=== PATIENT | female | born 2005 | race Hispanic/Latino ===

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

== ENCOUNTER 2025-01-05 21:16 | Emergency (ER) | payer SELFPAY ==
[2025-01-05 21:33] VITALS: BP 124/80; PULSE 68; RESP 18; TEMP 36.6; O2SAT 100
[2025-01-06 00:21] LABS: BEDSIDEPREGUCG Negative (Negative)
[2025-01-06 00:25] LABS: Add Urine Microscopic? YES; Appearance Urine Clear (Clear); Glucose Urine UA Negative (Negative); Leukocyte Esterase Ur 1+ LEU/UL (Negative); Nitrate Urine Negative (Negative); Non Pathogenic Casts 0-2; Specific Grav Ur 1.033 (1.001-1.035)
--- NOTE | 2025-01-06 01:05 | ED.BACK ---
HPI - Back Pain/Injury General Chief Complaint: Back Pain/Injury Stated Complaint: Lower back pain-known UTI Time Seen by Provider: 01/06/25 00:46 Source: patient and family (mother) Mode of arrival: ambulatory Limitations: no limitations History of Present Illness HPI Narrative: Patient presents with right flank pain. She has a new UTI as her urine was tested at urgent care recently. Her symptoms of urinary urgency and frequency having getting better. She denies any hematuria. She has continued to have dysuria. Mother states that her symptoms have been going on for approximately 3 weeks and they think they waited too long to have it looked into. Patient denies being sexually active. Denies any vaginal bleeding or discharge. Her last bowel movement was yesterday and denies any diarrhea constipation or blood although mother does state that she has dealt with constipation before. Last menstrual period was last month. Patient was prescribed 500 mg tablets of ciprofloxacin to be taken for 7 days b.i.d. she is on day 3 of this therapy, has taken 5 doses. She took 500 mg 2 hours ago. Was also concern for possible yeast infection however she was prescribed the vaginal treatment and, as a virgin, felt uncomfortable using this. Instead has been applying [id number] cream. Patient has been having subjective fevers as well as nausea but no vomiting. No history of kidney stones. Does not currently have a primary care physician as they recently moved to [place] from [place]. They are currently in [place] for mother's nephew's who at 19 years old. Related Data Allergies Allergy/AdvReac Type Severity Reaction Status Date / Time Penicillins Allergy Mild Rash Verified 01/05/25 21:17 [facility] Surgical History Surgical History (Updated 06/02/24 @ 17:21 by Renu Hernandez APRN) History of tonsillectomy Social History Social History Living arrangements: with family Exam Narrative: GENERAL: Well-appearing, well-nourished, and in no acute distress. HEAD: Normocephalic, atraumatic. EYES: Non injected, non icteric ENT: Nares clear, no rhinorrhea or epistaxis. Gross auditory acuity intact. NECK: Supple. No meningismus. CHEST: Speaking in full sentences. No respiratory distress. HEART: Regular rate and rhythm. . ABDOMEN: Soft, nondistended. /BACK: Right CVA tenderness. EXTREMITIES: Normal range of motion. No lower extremity edema. SKIN: Warm, dry, no rash. NEURO: No focal deficits. Alert and oriented. Answering questions. Following commands. Normal speech without aphasia or dysarthria. PSYCH: Normal mood and affect. Course Vital Signs Vital signs: Vital Signs Temperature 98 F 01/05/25 21:33 Pulse Rate 68 01/05/25 21:33 Respiratory Rate 18 01/05/25 21:33 Blood Pressure 124/80 01/05/25 21:33 Pulse Oximetry 100 01/05/25 21:33 Oxygen Delivery Room Air 01/05/25 21:33 Temperature 98.3 F 01/06/25 01:46 Pulse Rate 68 01/06/25 01:46 Respiratory Rate 18 01/06/25 01:46 Blood Pressure 109/72 01/06/25 01:46 Pulse Oximetry 99 01/06/25 01:46 Oxygen Delivery Room Air 01/05/25 21:33 MDM - Back Pain/Injury MDM Narrative Medical decision making narrative: Patient presents with report of right flank pain. She has a known UTI diagnosed recently at urgent care. In the emergency department they are afebrile with vital signs within normal limits. test negative. UTI on urinalysis. Urine culture has reflexed. Patient was prescribed 7 day course of ciprofloxacin b.i.d. by urgent care which should be an appropriate therapy for pyelonephritis. I am hesitant to change antibiotics right now. Will give PO Zofran as well as IM ketorolac. Discharged with prescriptions for Zofran as well as pyridium and she received the 1st dose of this in the emergency department as well. She receives an empiric dose of fluconazole with a 1 time dose to be used in 72 hours if still symptomatic. We discussed the role of the urine culture and that they would be notified if there was indication of antibiotic resistance. We discussed appropriate hygiene and the need to drink plenty of fluids and that constipation can also contribute to UTI. She does not wear contacts but we discussed the side effects of Pyridium. However, Given patient is approaching nearly 3 days of antibiotic therapy (5 doses), there was consideration of abscess and for this reason I did urge her to return if she is continuing to have symptoms as she may require labs and imaging. They will go home and get some rest before going to family and assess if patient is improving. Provided referral to a PCP though they live in [facility]. Lab Data Attestation: I reviewed the patient's lab results. Labs: Lab Results 01/06/25 01/06/25 Range/Units 00:15 00:17 Urine Color Yellow (Yellow) Urine Appearance Clear (Clear) Urine pH 6.5 (5.0-9.0) Ur Specific [place] 1.033 (1.001-1.035) Urine Protein Trace (Negative) mg/dL Urine Glucose (UA) Negative (Negative) mg/dL Urine Ketones Trace H (Negative) mg/dL Ur Blood (Man) Negative (Negative) Urine Nitrate Negative (Negative) Urine Bilirubin Negative (Negative) Urine Urobilinogen 1.0 (<2.0) mg/dL Leukocyte Esterase Rfl 1+ H (Negative) ECHO/UL Urine RBC 0-2 (0-2) /hpf Urine WBC 6-10 H (0-3) /hpf Ur Squamous Epith Cells Few (Few) /hpf Urine Bacteria 2+ H /hpf Urine Casts 0-2 POC Urine HCG, Qual Negative (Negative) Discharge Plan Discharge Clinical Impression: Pyelonephritis, Dysuria, UTI (urinary tract infection) Patient Disposition: Home Condition: Stable Instructions: Antibiotic Form, Urinary Tract Infection in Women (DC), Kidney Infection (ED), Dysuria (ED), Flank Pain (ED) Additional Instructions: As we discussed, they urinary tract infection likely spread upwards to around your kidney which is known as pyelonephritis. Continue taking the antibiotic you were prescribed from urgent care. This should be appropriate and is of appropriate duration. However, your urine is currently being cultured you will be notified if based on this the ciprofloxacin does not seem like it will work. Take the entire course of antibiotics even if you do start feeling better. Acetaminophen/Tylenol (maximum 3000 mg per day) is safe to take with NSAIDs (ibuprofen/Motrin) for pain relief. Pyridium/phenazopyridine can help with the pain you are experiencing from a urinary tract infection. It can discolor your urine and tears (turn them orange). Do not wear contact lenses while taking this medication. We are also empirically treating you for a yeast infection. A 2nd dose at 72 hours (01/09/25) can be taken if still experiencing symptoms. The name of a primary care physician is listed for follow-up. Return to the emergency department any new or worsening symptoms such as intractable pain, intractable nausea/vomiting, fever greater than 100.4? F, etc. The oral disintegrating tablets of Zofran can help with nausea and vomiting Patient Language: Surinamese Prescriptions: New ibuprofen 600 mg tablet 600 mg PO TID PRN (Reason: pain) Qty: 30 0RF phenazopyridine [Pyridium] 100 mg tablet 100 mg PO TID PRN (Reason: pain) Qty: 5 0RF Rx Instructions: received first dose in ED 7/1 AM fluconazole 150 mg tablet 150 mg PO ONCE Qty: 1 0RF Rx Instructions: as a single dose, to be taken if still symptomatic in 72 hours (01/09/25) ondansetron 4 mg tablet,disintegrating 4 mg PO Q8H PRN (Reason: nausea and vomiting) Qty: 7 0RF ibuprofen 600 mg tablet 600 mg PO TID PRN (Reason: pain) Qty: 30 0RF ondansetron 4 mg tablet,disintegrating 4 mg PO Q8H PRN (Reason: nausea and vomiting) Qty: 7 0RF fluconazole 150 mg tablet 150 mg PO ONCE Qty: 1 0RF Rx Instructions: as a single dose in 72 hours (01/09/2025) if still symptomatic phenazopyridine [Pyridium] 100 mg tablet 100 mg PO TID PRN (Reason: pain) Qty: 5 0RF Rx Instructions: Received 1st dose in emergency department 7 /1 a.m. No Action fluticasone propionate [Flonase Allergy Relief] 50 mcg/actuation spray,suspension 2 spray intranasal DAILY Qty: 16 0RF Rx Instructions: administer into each nostril Follow-up/Referrals: Rayshawn Harrington MD [Physician] - PHYSICIAN,[employer] PREPARATION TECHNICIAN [Primary Care Provider] - Stand Alone Forms: Work/School Release IP Time of Disposition: 01:44
[2025-01-06 01:46] VITALS: BP 109/72; PULSE 68; RESP 18; TEMP 36.8; O2SAT 99
[2025-01-06] MEDS: FLUCONAZOLE 150 MG TABLET PO (01:46)
[2025-01-06] MEDS: ONDANSETRON HCL ODT 4 MG TABLET PO (01:46)
[2025-01-06] MEDS: PHENAZOPYRIDINE HCL 100 MG TABLET PO (01:46)
[2025-01-06] MEDS: KETOROLAC 30 MG/ML VIAL (*BKC) 15 MG IM (01:47)
== END 2025-01-06 02:00 | disposition home or self-care (01) ==
PROVIDERS: Physician Assistant; Emergency Provider Student in an Organized Health Care Education/Training Program
DX: N12 Tubulo-interstitial nephritis, not specified as acute or chronic (principal)
CPT/HCPCS: 81001; 81025; 87086; 96372; 99283; A9270; J1885

== ENCOUNTER 2025-01-08 16:39 | Emergency (ER) | payer MEDICAID, SELFPAY ==
--- NOTE | ~2025-01-08 | CT_ITS ---
CT abdomen pelvis w con Ordering provider: Miladis Padilla History: 19 years Female with . RIGHT FLANK PAIN, RIGHT LOWER QUADRANT PAIN . Comparison: None. Technique: CT abdomen and pelvis with IV and without oral contrast. Automated exposure control and it erative reconstruction technique were employed. The dose-length product was 190.60 mGy-cm. 100 mL Omn ipaque 350 was given IV. Findings: VISUALIZED LOWER CHEST: Normal. UPPER ABDOMINAL ORGANS: Liver: Normal. Gallbladder: Normal. Spleen: Normal. Stomach/duodenum: Normal. Pancreas: Normal. Slightly thickened body and tail of the pancreas with no surrounding fat stranding. Evaluation for pancreatitis and clinical correlation advised. Adrenals: Normal. Kidneys: Normal. PELVIC ORGANS: The bladder is normal. Left ovarian cyst is seen measuring 2.4 cm. BOWEL AND MESENTERY: Colon: No evidence of diverticulitis. Fecal material is loaded in the colon. The appendix is not demo nstrated. Small Bowel: Normal. No obstruction. Peritoneum/mesentery: No free air or free fluid. No mesenteric lymphadenopathy. RETROPERITONEUM: Normal aorta. No retroperitoneal lymphadenopathy. MUSCULOSKELETAL: Superficial soft tissues: The superficial soft tissues are normal. Bones: Normal spine. IMPRESSION: 1. No evidence of appendicitis, diverticulitis or intestinal obstruction. 2. Slightly thickened body and tail of the pancreas with no fat stranding. Clinical correlation and evaluation for pancreatitis advised. 3. Constipation. 4. Left ovarian cyst measuring 2.4 cm. Reviewed, dictated and finalized at location A. IMPRESSION: 1. No evidence of appendicitis, diverticulitis or intestinal obstruction. 2. Slightly thickened body and tail of the pancreas with no fat stranding. Cli nical correlation and evaluation for pancreatitis advised. 3. Constipation. 4. Left ovarian cyst measuring 2.4 cm.
[2025-01-08 16:40] VITALS: BP 115/71; PULSE 78; RESP 18; TEMP 36.8; O2SAT 100
[2025-01-08 18:55] VITALS: BP 110/76; PULSE 70; RESP 14; TEMP 36.6; O2SAT 100
[2025-01-08 19:07] LABS: BEDSIDEPREGUCG Negative (Negative)
[2025-01-08 19:47] LABS: Add Urine Microscopic? YES; Appearance Urine Cloudy (Clear); Glucose Urine UA Negative (Negative); Leukocyte Esterase Ur 1+ LEU/UL (Negative); Need Manual Microscopic Reviewed; Nitrate Urine Negative (Negative); Non Pathogenic Casts 0-2; Specific Grav Ur 1.027 (1.001-1.035)
--- NOTE | 2025-01-08 19:49 | ED.FEMALEGU ---
HPI - Female Genitourinary General Chief complaint: Urogenital-Female <Miladis Padilla MD - Last Filed: 01/08/25 22:12> Stated complaint: kidney infection <Miladis Padilla MD - Last Filed: 01/08/25 22:12> Time Seen by Provider: 01/08/25 19:42 <Miladis Padilla MD - Last Filed: 01/08/25 22:12> Source: patient <Miladis Padilla MD - Last Filed: 01/08/25 22:12> Mode of arrival: ambulatory <Miladis Padilla MD - Last Filed: 01/08/25 22:12> Limitations: no limitations <Miladis Padilla MD - Last Filed: 01/08/25 22:12> History of Present Illness HPI Narrative: 19 YEARS OLD FEMALE CAME TO THE ED COMPLAINING OF RIGHT FLANK PAIN, INTERMITTENT STARTED 2 WEEKS AGO. DULL ACHING, RADIATING SOMETIME TO RIGHT LOWER QUADRANT ASSOCIATED WITH NAUSEA, URINE FREQUENCY AND URGENCY, STARTED ON CIPRO 500 B.I.D. 6 DAYS AGO URINE SYMPTOMS ARE IMPROVED BUT THE FLANK PAIN STILL THERE. CAME TO OUR EMERGENCY ROOM 2 DAYS AGO, WAS DISCHARGED WITH DIAGNOSIS OF PYELONEPHRITIS ON PYRIDIUM, FLUCONAZOLE, ZOFRAN AND IBUPROFEN. PATIENT DID NOT GET THE PRESCRIPTION YET. PATIENT DENIES ANY VAGINAL BLEEDING OR DISCHARGE. <Miladis Padilla MD - Last Filed: 01/08/25 22:12> Related Data Allergies/Adverse reactions: Allergies Allergy/AdvReac Type Severity Reaction Status Date / Time Penicillins Allergy Mild Rash Verified 01/05/25 21:17 <Miladis Padilla MD - Last Filed: 01/08/25 22:12> Review of Systems Review of Systems: All systems reviewed & are unremarkable except as noted in HPI and below <Miladis Padilla MD - Last Filed: 01/08/25 22:12> [facility] Surgical History Surgical History: Surgical History History of tonsillectomy <Miladis Padilla MD - Last Filed: 01/08/25 22:12> Social History Social History: Social History Living arrangements: with family <Miladis Padilla MD - Last Filed: 01/08/25 22:12> Exam Narrative: GENERAL APPEARANCE: WELL-DEVELOPED, WELL-NOURISHED SKIN: NORMAL COLOR HEAD: NORMOCEPHALIC, NONTRAUMATIC EYES: CLEAR CONJUNCTIVA ENT: OROPHARYNX NORMAL, EARS NORMAL, NOSE NORMAL NECK: SUPPLE, NONTENDER CHEST AND RESPIRATORY: AIRWAY PATENT, NO RESPIRATORY DISTRESS, NO ACCESSORY MUSCLE USE HEART: REGULAR RATE/RHYTHM ABDOMEN: SOFT, MILD TENDERNESS RIGHT FLANK AND RIGHT LOWER QUADRANT, NO GUARDING OR REBOUND, NO RASH OR ERYTHEMA OR SWELLING , NO ORGANOMEGALY, QUIET BOWEL SOUNDS VASCULAR: NORMAL PERIPHERAL PULSES, NORMAL CAPILLARY REFILL. MUSCULOSKELETAL: NORMAL RANGE OF MOTION, NONTENDER BACK NEUROLOGIC: ALERT AND ORIENTED ?3, DISTRICT SUPERVISOR IS NORMAL TESTED, NO GROSS MOTOR DEFICIT <Miladis Padilla MD - Last Filed: 01/08/25 22:12> Course Course Emergency Course: Patient care signed over by previous provider pending CT scan imaging and likely discharge home. Patient here for intermittent right flank pain for 2 weeks. Recently treated with antibiotics for UTI. Her workup today is unrevealing with no leukocytosis or anemia. Normal platelet count. Negative lipase. Electrolytes are all normal, normal kidney function, normal liver function, normal glucose. Urinalysis without any signs of infection. Negative test. CT abdomen pelvis with IV contrast shows no appendicitis, diverticulitis or intestinal obstruction. Constipation is seen as well as a left ovarian cyst at 2.4 cm but not on the side of patient's pain and not causing symptoms. She has a slightly thickened body and tail the pancreas with no fat stranding but her lipase is negative no epigastric pain, nausea or vomiting. Symptoms not consistent with pancreatitis. Patient is asymptomatic on reassessment and can safely go home at this time with outpatient primary follow-up. <Kirk Pathak MD - Last Filed: 01/09/25 05:50> Vital Signs Vital signs: Vital Signs Temperature 36.8 C 01/08/25 16:40 Pulse Rate 78 01/08/25 16:40 Respiratory Rate 18 01/08/25 16:40 Blood Pressure 115/71 01/08/25 16:40 Pulse Oximetry 100 01/08/25 16:40 Oxygen Delivery Room Air 01/08/25 16:40 Temperature 36.6 C 01/08/25 18:55 Pulse Rate 64 01/09/25 00:46 Respiratory Rate 15 01/09/25 00:46 Blood Pressure 109/74 01/09/25 00:46 Pulse Oximetry 99 01/09/25 00:46 Oxygen Delivery Room Air 01/08/25 16:40 <Miladis Padilla MD - Last Filed: 01/08/25 22:12> Vital Signs Temperature 36.8 C 01/08/25 16:40 Pulse Rate 78 01/08/25 16:40 Respiratory Rate 18 01/08/25 16:40 Blood Pressure 115/71 01/08/25 16:40 Pulse Oximetry 100 01/08/25 16:40 Oxygen Delivery Room Air 01/08/25 16:40 Temperature 36.6 C 01/08/25 18:55 Pulse Rate 64 01/09/25 00:46 Respiratory Rate 15 01/09/25 00:46 Blood Pressure 109/74 01/09/25 00:46 Pulse Oximetry 99 01/09/25 00:46 Oxygen Delivery Room Air 01/08/25 16:40 <Kirk Pathak MD - Last Filed: 01/09/25 05:50> MDM - Female Genitourinary MDM Narrative Medical decision making narrative: PATIENT PRESENTS WITH RIGHT FLANK PAIN FOR 2 WEEKS VITAL SIGNS ARE STABLE PHYSICAL EXAMINATION SHOWING TENDERNESS RIGHT FLANK AND RIGHT LOWER QUADRANT DIFFERENTIAL DIAGNOSIS INCLUDE PYELONEPHRITIS, KIDNEY STONE, APPENDICITIS, CHOLECYSTITIS, CONSTIPATION, DIVERTICULITIS, COLITIS. MAY BLOOD WORKUP TODAY INCLUDES CBC, CMP, LIPASE SHOWED NO SIGNIFICANT ABNORMALITIES URINALYSIS SHOWED CLOUDY, 1+ PROTEIN, 1+ LEUKOCYTE ESTRACE, 3+ BLOOD CT ABDOMEN AND PELVIS WITH IV CONTRAST SHOWED PATIENT CARE TURNED OVER TO DR. PATHAK AT SHIFT CHANGE, AWAITING LABS, IMAGING, DISPOSITION. PATIENT BEEN RESTING QUIETLY IN THE EMERGENCY ROOM WITHOUT ANY ISSUES OR PROBLEMS. <Miladis Padilla MD - Last Filed: 01/08/25 22:12> Differential Diagnosis Differential diagnosis: Likely other ( ABOVE) <Miladis Padilla MD - Last Filed: 01/08/25 22:12> Medical Records Attestation: I reviewed the patient's medical records. <Miladis Padilla MD - Last Filed: 01/08/25 22:12> Lab Data Attestation: I reviewed the patient's lab results. <Miladis Padilla MD - Last Filed: 01/08/25 22:12> Result diagrams: 01/08/25 21:42 01/08/25 21:42 <Miladis Padilla MD - Last Filed: 01/08/25 22:12> Labs: Lab Results 01/08/25 01/08/25 01/08/25 Range/Units 19:02 19:05 21:42 WBC 7.4 (4.5-10.0) K/mm3 RBC 4.10 L (4.2-5.4) M/mm3 Hgb 12.3 (12.0-15.0) g/dL Hct 38.1 (37.0-47.0) % MCV 92.9 (80-100) fl MCH 30.0 (26-34) pg MCHC 32.3 (32-36) g/dl RDW 11.9 (11.5-14.5) % Plt Count 270 (150-375) k/mm3 MPV 10.0 (7.4-10.4) fl Immature Gran % (Auto) 0.1 (0-0.5) % Neut % (Auto) 44.0 L (45.5-73.1) % Lymph % (Auto) 44.8 H (18.3-44.2) % [place] % (Auto) 8.1 (2.6-8.5) % Eos % (Auto) 2.6 (0-4.4) % Baso % (Auto) 0.4 (0.2-1.2) % Lymph # (Auto) 3.30 H (0.9-3.2) K/mm3 [place] # (Auto) 0.6 (0.1-0.6) K/mm3 Eos # (Auto) 0.2 (0-0.3) K/mm3 Baso # (Auto) 0.0 (0.0-0.1) K/mm3 Abs Immat Gran (auto) 0.01 (0.00-0.031) K/mm3 Absolute Neuts (auto) 3.2 (1.3-6.7) K/mm3 Absolute Nucleated RBC 0.000 (0.0-0.012) K/mm3 Nucleated RBC % 0.0 (0.0-0.2) % Sodium 137 (134-143) mmol/L Potassium 3.8 (3.4-5.0) mmol/L Chloride 103 (98-107) mmol/L Carbon Dioxide 26 (22-30) mmol/L Anion Gap 8 (4-12) mmol/L BUN 14 (8-21) mg/dL Creatinine 0.62 L (0.7-1.0) mg/dL Estim Creat Clear Calc 103 ml/min Estimated GFR > 60 (59 - ) Glucose 96 (65-110) mg/dL Calcium 9.4 (8.9-10.7) mg/dL Total Bilirubin 0.2 (0.2-1.3) mg/dL AST 24 (14-36) U/L ALT 12 (6-35) U/L Alkaline Phosphatase 67 (45-116) U/L Total Protein 7.6 (6.3-8.6) g/dL Albumin 4.3 (3.7-5.6) g/dL Lipase 98 (23-300) U/L Urine Color Yellow (Yellow) Urine Appearance Cloudy H (Clear) Urine pH 7.0 (5.0-9.0) Ur Specific [place] 1.027 (1.001-1.035) Urine Protein 1+ H (Negative) mg/dL Urine Glucose (UA) Negative (Negative) mg/dL Urine Ketones Trace H (Negative) mg/dL Ur Blood (Man) 3+ H (Negative) Urine Nitrate Negative (Negative) Urine Bilirubin Negative (Negative) Urine Urobilinogen 1.0 (<2.0) mg/dL Add Ur Microanalysis Reviewed Leukocyte Esterase Rfl 1+ H (Negative) ECHO/UL Urine RBC 11-20 H (0-2) /hpf Urine WBC 0-5 (0-3) /hpf Ur Squamous Epith Cells Occasional (Few) /hpf Urine Bacteria Rare /hpf Urine Casts 0-2 Urine Mucus Present /lpf POC Urine HCG, Qual Negative (Negative) <Miladis Padilla MD - Last Filed: 01/08/25 22:12> Lab Results 01/08/25 01/08/25 01/08/25 Range/Units 19:02 19:05 21:42 WBC 7.4 (4.5-10.0) K/mm3 RBC 4.10 L (4.2-5.4) M/mm3 Hgb 12.3 (12.0-15.0) g/dL Hct 38.1 (37.0-47.0) % MCV 92.9 (80-100) fl MCH 30.0 (26-34) pg MCHC 32.3 (32-36) g/dl RDW 11.9 (11.5-14.5) % Plt Count 270 (150-375) k/mm3 MPV 10.0 (7.4-10.4) fl Immature Gran % (Auto) 0.1 (0-0.5) % Neut % (Auto) 44.0 L (45.5-73.1) % Lymph % (Auto) 44.8 H (18.3-44.2) % [place] % (Auto) 8.1 (2.6-8.5) % Eos % (Auto) 2.6 (0-4.4) % Baso % (Auto) 0.4 (0.2-1.2) % Lymph # (Auto) 3.30 H (0.9-3.2) K/mm3 [place] # (Auto) 0.6 (0.1-0.6) K/mm3 Eos # (Auto) 0.2 (0-0.3) K/mm3 Baso # (Auto) 0.0 (0.0-0.1) K/mm3 Abs Immat Gran (auto) 0.01 (0.00-0.031) K/mm3 Absolute Neuts (auto) 3.2 (1.3-6.7) K/mm3 Absolute Nucleated RBC 0.000 (0.0-0.012) K/mm3 Nucleated RBC % 0.0 (0.0-0.2) % Sodium 137 (134-143) mmol/L Potassium 3.8 (3.4-5.0) mmol/L Chloride 103 (98-107) mmol/L Carbon Dioxide 26 (22-30) mmol/L Anion Gap 8 (4-12) mmol/L BUN 14 (8-21) mg/dL Creatinine 0.62 L (0.7-1.0) mg/dL Estim Creat Clear Calc 103 ml/min Estimated GFR > 60 (59 - ) Glucose 96 (65-110) mg/dL Calcium 9.4 (8.9-10.7) mg/dL Total Bilirubin 0.2 (0.2-1.3) mg/dL AST 24 (14-36) U/L ALT 12 (6-35) U/L Alkaline Phosphatase 67 (45-116) U/L Total Protein 7.6 (6.3-8.6) g/dL Albumin 4.3 (3.7-5.6) g/dL Lipase 98 (23-300) U/L Urine Color Yellow (Yellow) Urine Appearance Cloudy H (Clear) Urine pH 7.0 (5.0-9.0) Ur Specific [place] 1.027 (1.001-1.035) Urine Protein 1+ H (Negative) mg/dL Urine Glucose (UA) Negative (Negative) mg/dL Urine Ketones Trace H (Negative) mg/dL Ur Blood (Man) 3+ H (Negative) Urine Nitrate Negative (Negative) Urine Bilirubin Negative (Negative) Urine Urobilinogen 1.0 (<2.0) mg/dL Add Ur Microanalysis Reviewed Leukocyte Esterase Rfl 1+ H (Negative) ECHO/UL Urine RBC 11-20 H (0-2) /hpf Urine WBC 0-5 (0-3) /hpf Ur Squamous Epith Cells Occasional (Few) /hpf Urine Bacteria Rare /hpf Urine Casts 0-2 Urine Mucus Present /lpf POC Urine HCG, Qual Negative (Negative) <Kirk Pathak MD - Last Filed: 01/09/25 05:50> Discharge Plan Discharge Clinical Impression: Right flank pain <Miladis Padilla MD - Last Filed: 01/08/25 22:12> Patient Disposition: Home <Miladis Padilla MD - Last Filed: 01/08/25 22:12> Condition: Stable <Miladis Padilla MD - Last Filed: 01/08/25 22:12> Instructions: Antibiotic Form <Miladis Padilla MD - Last Filed: 01/08/25 22:12> Additional Instructions: Your CT scan today shows no evidence of any kidney stones or kidney infection, no signs of appendicitis, diverticulitis or any bowel obstructions. You do have some constipation. You have a small LEFT-sided ovarian cyst but this is not causing your symptoms on the right side. Your pancreas appears to have some slight thickening to it but there are no signs of inflammation or infection around the pancreas and your pancreatic enzymes are all normal which is unlikely the source of your symptoms but just for you to be aware of and to have a discussion with your primary care provider on follow-up. Return with any emergent concerns but no acute abnormalities were found today. <Miladis Padilla MD - Last Filed: 01/08/25 22:12> Patient Language: Croatian <Miladis Padilla MD - Last Filed: 01/08/25 22:12> Prescriptions: No Action fluticasone propionate [Flonase Allergy Relief] 50 mcg/actuation spray,suspension 2 spray intranasal DAILY Qty: 16 0RF Rx Instructions: administer into each nostril ibuprofen 600 mg tablet 600 mg PO TID PRN (Reason: pain) Qty: 30 0RF phenazopyridine [Pyridium] 100 mg tablet 100 mg PO TID PRN (Reason: pain) Qty: 5 0RF Rx Instructions: received first dose in ED 7/1 AM fluconazole 150 mg tablet 150 mg PO ONCE Qty: 1 0RF Rx Instructions: as a single dose, to be taken if still symptomatic in 72 hours (01/09/25) ondansetron 4 mg tablet,disintegrating 4 mg PO Q8H PRN (Reason: nausea and vomiting) Qty: 7 0RF ibuprofen 600 mg tablet 600 mg PO TID PRN (Reason: pain) Qty: 30 0RF ondansetron 4 mg tablet,disintegrating 4 mg PO Q8H PRN (Reason: nausea and vomiting) Qty: 7 0RF fluconazole 150 mg tablet 150 mg PO ONCE Qty: 1 0RF Rx Instructions: as a single dose in 72 hours (01/09/2025) if still symptomatic phenazopyridine [Pyridium] 100 mg tablet 100 mg PO TID PRN (Reason: pain) Qty: 5 0RF Rx Instructions: Received 1st dose in emergency department 7 /1 a.m. <Miladis Padilla MD - Last Filed: 01/08/25 22:12> Follow-up/Referrals: PHYSICIAN,CENTRIFUGE OPERATOR [Primary Care Provider] - <Miladis Padilla MD - Last Filed: 01/08/25 22:12> Time of Disposition: 00:09 <Miladis Padilla MD - Last Filed: 01/08/25 22:12> 00:09 <Kirk Pathak MD - Last Filed: 01/09/25 05:50>
[2025-01-08 21:49] LABS: Hematocrit 38.1 % (37.0-47.0); Hemoglobin 12.3 g/dL (12.0-15.0); Immature Granulocyte Percent A 0.1 % (0-0.5); Lymphocytes Absolute Auto 3.30 K/mm3 (0.9-3.2); Mean Corpuscular HGB Conc 32.3 g/dl (32-36); Mean Corpuscular Hemoglobin 30.0 pg (26-34); Mean Corpuscular Volume 92.9 fl (80-100); Nucleated Red Blood Cells Absolute Auto 0.000 K/mm3 (0.0-0.012); Nucleated Red Blood Cells Perc 0.0 % (0.0-0.2); Platelet Count Result 270 k/mm3 (150-375); Red Blood Count 4.10 M/mm3 (4.2-5.4); White Blood Count 7.4 K/mm3 (4.5-10.0)
[2025-01-08 22:01] LABS: Alanine Aminotransferase 12 U/L (6-35); Albumin Level 4.3 g/dL (3.7-5.6); Alkaline Phosphatase 67 U/L (45-116); Anion Gap 8 mmol/L (4-12); Aspartate Amino Transferase 24 U/L (14-36); Bilirubin,Total 0.2 mg/dL (0.2-1.3); Blood Urea Nitrogen 14 mg/dL (8-21); Calcium 9.4 mg/dL (8.9-10.7); Carbon Dioxide 26 mmol/L (22-30); Chloride 103 mmol/L (98-107); Estimated CRCL calculation 103 ml/min; Estimated Glomerular Filt Rate > 60; Glucose 96 mg/dL (65-110); Lipase 98 U/L (23-300); Potassium 3.8 mmol/L (3.4-5.0); Sodium 137 mmol/L (134-143); Total Protein 7.6 g/dL (6.3-8.6)
[2025-01-08 23:51] VITALS: BP 109/74; PULSE 64; RESP 15; O2SAT 99
[2025-01-09 00:46] VITALS: BP 109/74; PULSE 64; RESP 15; O2SAT 99
== END 2025-01-09 00:47 | disposition home or self-care (01) ==
PROVIDERS: Emergency Provider Emergency Medicine
DX: R10.31 Right lower quadrant pain (principal)
CPT/HCPCS: 36415; 74177; 80053; 81001; 81025; 83690; 85025; 87086; 99284; Q9967